=== PATIENT | male | born 1990 | race Caucasian/White ===

== ENCOUNTER → 2019-10-07 09:18 | Outpatient (BNVA) | payer MEDICAID, SELFPAY | PROVIDERS: Family Provider Family Medicine; PCP Family Medicine; Visit Provider Specialist | DX: G40.219 Localization-related (focal) (partial) symptomatic epilepsy and epileptic syndromes with complex partial seizures, intractable, without status epilepticus (principal); F17.210 Nicotine dependence, cigarettes, uncomplicated | CPT/HCPCS: 99214 ==

== ENCOUNTER → 2019-11-24 15:00 | Outpatient (BNVA) | payer MEDICAID, SELFPAY | PROVIDERS: Family Provider Family Medicine; PCP Family Medicine; Visit Provider Nurse Practitioner Family | DX: W46.0XXA Contact with hypodermic needle, initial encounter (principal) | CPT/HCPCS: 86706; 86803; 87340; 87806 ==

== ENCOUNTER → 2020-01-20 09:39 | Outpatient (BNVA) | payer MEDICAID, SELFPAY | PROVIDERS: Family Provider Family Medicine; PCP Family Medicine; Visit Provider Specialist | DX: G40.109 Localization-related (focal) (partial) symptomatic epilepsy and epileptic syndromes with simple partial seizures, not intractable, without status epilepticus (principal); F17.210 Nicotine dependence, cigarettes, uncomplicated | CPT/HCPCS: 99214 ==

== ENCOUNTER 2020-01-20 11:04 | Outpatient (CLI) | payer MEDICAID, SELFPAY ==
[2020-01-20 11:39] LABS: Alanine Aminotransferase 87 U/L (0-41); Valproic Acid Level 35.5 mcg/mL (50-100)
== END 2020-01-20 11:05 | disposition home or self-care (01) ==
LOC: LAB 11:07
PROVIDERS: Family Provider Family Medicine; PCP Family Medicine; Visit Provider Specialist
DX: G40.909 Epilepsy, unspecified, not intractable, without status epilepticus (principal)
CPT/HCPCS: 36415; 80164; 84460

== ENCOUNTER 2020-04-01 13:16 | Emergency (ER) | payer MEDICAID, SELFPAY ==
[2020-04-01 13:24] VITALS: PULSE 105; RESP 18; TEMP 36.6; O2SAT 93; BMI 26.4
[2020-04-01 14:16] LABS: Basophils # 0.1 10^3/uL (0.0-0.1); Basophils % 1.2 %; Eosinophils # 0.1 10^3/uL (0.0-0.8); Eosinophils % 1.2 %; Hematocrit 46.3 % (42.0-52.0); Hemoglobin 16.2 g/dL (11.7-16.6); Lymphocytes # 1.8 10^3/uL (0.8-4.8); Lymphocytes % 27.3 %; Mean Corpuscular Hemoglobin 33.6 pg (28.0-34.0); Mean Corpuscular Volume 96.1 fL (80-94); Mean Platelet Volume 8.9 fL (7.4-10.4); Monocytes # 0.4 10^3/uL (0.2-0.9); Monocytes % 5.3 %; Neutrophils # 4.29 10^3/uL (1.8-7.7); Neutrophils % 64.8 %; Nucleated Red Blood Cells % 0 %; Platelet Count 253 10^3/cmm (130-400); Red Blood Count 4.82 10^6/uL (4.1-5.3); Red Cell Distribution Width 11.6 % (12.1-15.1); White Blood Count 6.6 10^3/uL (4.0-10.0)
[2020-04-01 14:31] LABS: Alanine Aminotransferase 24 U/L (0-41); Albumin Level 4.6 g/dL (3.5-5.2); Alkaline Phosphatase 109 IU/L (40-130); Anion Gap 20.1 (5-19); Aspartate Amino Transferase 43 U/L (0-40); Blood Urea Nitrogen 5 mg/dL (6-20); Calcium 9.1 mg/dL (8.5-10.5); Carbon Dioxide 22 mmol/L (22-29); Chloride 100 mmol/L (98-107); Creatinine Clr Calc Pharmacy 189.2175; Globulin 2.8 g/dL (1.3-4.6); Glomerular Filtration Rate 132.4 mL/min (90-130); Glucose 211 mg/dL (65-115); Osmolality Calculated 290 mOsm/kg (285-295); Potassium 3.1 mmol/L (3.5-5.1); Sodium 139 mmol/L (136-145); Total Bilirubin 0.5 mg/dL (0.15-1.2); Total Protein 7.4 g/dL (6.6-8.7)
--- NOTE | 2020-04-01 15:26 | CTR_ITS ---
PROCEDURE INFORMATION: Exam: CT Head Without Contrast Exam date and time: 04/01/2020 4:14 PM Age: 29 years old Clinical indication: Condition or disease; Convulsions or seizures; Prior surgery; Additional info: Seizure TECHNIQUE: Imaging protocol: Computed tomography of the head without contrast. Radiation optimization: All CT scans at this facility use at least one of these dose optimization techniques: automated exposure control; mA and/or kV adjustment per patient size (includes targeted exams where dose is matched to clinical indication); or iterative reconstruction. COMPARISON: CT head wo con* [id number] 06/26/2018 12:59 PM RADIATION DOSE METRICS: Total DLP (mGy-cm): 918.1 FINDINGS: Brain: Normal. No hemorrhage. Unremarkable white matter. No mass effect. Unchanged encephalomalacia of the left temporal lobe may reflect sequela of old injury. Ventricles: Normal. No ventriculomegaly. Bones/joints: There is unchanged satisfactory appearance of the postoperative right craniotomy is again noted. No acute fracture. Sinuses: Visualized sinuses are unremarkable. No fluid levels. Mastoid air cells: Visualized mastoid air cells are well aerated. Soft tissues: Unremarkable. CT/CT head wo con* [id number] IMPRESSION: No acute intracranial abnormality. Chronic findings and postoperative changes are noted as above. Radiation Dose CTDIVOL = (mGy): DLP = 918.1 (mGy-cm)
--- NOTE | 2020-04-01 16:55 | W.ED.AMS ---
HPI - Altered Mental Status General: Chief Complaint: Altered Mental Status Stated Complaint: possible head inury Time Seen by Provider: 04/01/20 15:02 History of Present Illness: HPI narrative: Patient has a history of traumatic brain injury. He has complex complicated seizures secondary to this injury. She had a seizure several days ago and has had some memory difficulty since that time. MD complaint: altered mental status and confusion Onset (ago): day(s) Timing confirmed by: family member Severity: moderate Consistency of symptoms: Waxing and Waning Context: history of similar presentation Review of Systems General: Reports: 10 or more systems reviewed and unremarkable except in HPI and below PFSH ED PFSH: Medical History Brain injury Social History Smoking and tobacco status: current every day smoker cigarettes Packs smoked per day: 1 Alcohol intake: current Alcohol intake frequency: 0-2 Drinks per Day Alcohol type: beer Physical Exam Const: COMMON NORMALS: no acute distress, patient oriented x3, no limitations and alert HENMT: COMMON NORMALS: normocephalic, atraumatic, external ears normal and Normal external nose present HEAD & SCALP: normocephalic and atraumatic FACE & SINUS: normal facial exam NOSE: Normal external nose present EXTERNAL EAR: Yes external ears normal MOUTH: Normal oral and palatal mucosa present Neck/C-Spine: COMMON NORMALS: full ROM, no lymphadenopathy, supple, no meningeal signs and no JVD GENERAL: Yes normal visual inspection Resp: COMMON NORMALS: normal respiratory effort, No retractions, No use of accessory muscles and clear to auscultation bilaterally AUSCULTATION: clear to auscultation bilaterally Cardio: COMMON NORMALS: no JVD, regular rate and regular rhythm RATE: regular rate RHYTHM: regular rhythm GI: COMMON NORMALS: Normal to inspection, nondistended, normoactive bowel sounds present, Soft to palpation, non-tender, No hepatosplenomegaly present and no masses INSPECTION: Yes normal to inspection AUSCULTATION: Yes normoactive bowel sounds PALPATION: Yes Soft to palpation and Yes No hepatosplenomegaly present PERCUSSION: normal to percussion : COMMON NORMALS: Yes no CVA tenderness BLADDER/KIDNEY EXAM: Yes no CVA tenderness Back/Pelvis: COMMON NORMALS: no CVA tenderness, thoracic and lumbar spine normal to inspection, no thoracic nor lumbar tenderness, thoraco-lumbar ROM normal and straight leg raise negative bilaterally Extremity: COMMON NORMALS: normal to inspection, full ROM, capillary refill normal, no joint enlargement, no clubbing, cyanosis or edema, no calf tenderness and no pedal edema Neuro: COMMON NORMALS: patient oriented x3, moves all extremities, no focal motor deficits and no sensory deficits noted SENSORIUM/ORIENTATION: Yes alert MENINGEAL SIGNS: Yes no meningeal signs Psych: COMMON NORMALS: mental status grossly normal, Normal thought process present, cooperative, normal affect and speech normal SPEECH: Yes normal speech THOUGHT PROCESS: Normal thought process present Skin: COMMON NORMALS: no rashes or lesions noted, no wounds, turgor normal, no jaundice, no petechiae and no mottling GENERAL SKIN EXAM: no rashes or lesions noted and turgor normal Course Vital Signs: Vital signs: Vital Signs Temperature 97.8 F 04/01/20 13:24 Pulse Rate 105 H 04/01/20 13:24 Respiratory Rate 18 04/01/20 13:24 Pulse Oximetry 93 04/01/20 13:24 MDM - Altered Mental Status Lab Data: Labs: Lab Results 04/01/20 04/01/20 Range/Units 14:12 14:12 WBC 6.6 (4.0-10.0) 10^3/ uL RBC 4.82 (4.1-5.3) 10^6/u L Hgb 16.2 (11.7-16.6) g/dL Hct 46.3 (42.0-52.0) % MCV 96.1 H (80-94) fL MCH 33.6 (28.0-34.0) pg MCHC 35.0 (30.0-36.0) g/dL RDW 11.6 L (12.1-15.1) % Plt Count 253 (130-400) 10^3/c mm MPV 8.9 (7.4-10.4) fL Neut % (Auto) 64.8 % Lymph % (Auto) 27.3 % Petroleum % (Auto) 5.3 % Eos % (Auto) 1.2 % Baso % (Auto) 1.2 % Neut # (Auto) 4.29 (1.8-7.7) 10^3/u L Lymph # (Auto) 1.8 (0.8-4.8) 10^3/u L Petroleum # (Auto) 0.4 (0.2-0.9) 10^3/u L Eos # (Auto) 0.1 (0.0-0.8) 10^3/u L Baso # (Auto) 0.1 (0.0-0.1) 10^3/u L Nucleated RBC % (a uto) 0 % Nucleated RBCs # 0.0 /100WBC Sodium 139 (136-145) mmol/L Potassium 3.1 L (3.5-5.1) mmol/L Chloride 100 (98-107) mmol/L Carbon Dioxide 22 (22-29) mmol/L Anion Gap 20.1 H (5-19) BUN 5 L (6-20) mg/dL Creatinine 0.7 (0.7-1.2) mg/dL GFR Calculation 132.4 H (90-130) mL/min Glucose 211 H (65-115) mg/dL Calculated Osmolal ity 290 (285-295) mOsm/k g Calcium 9.1 (8.5-10.5) mg/dL Total Bilirubin 0.5 (0.15-1.2) mg/dL AST 43 H (0-40) U/L ALT 24 (0-41) U/L Alkaline Phosphata se 109 (40-130) IU/L Total Protein 7.4 (6.6-8.7) g/dL Albumin 4.6 (3.5-5.2) g/dL Globulin 2.8 (1.3-4.6) g/dL Discharge Plan Discharge Patient Disposition: Home, Self-Care Clinical Impression: History of traumatic brain injury, Seizure disorder AMS (altered mental status) Qualifiers: Altered mental status type: unspecified Qualified Code(s): R41.82 - Altered mental status, unspecified Condition: Stable Prescriptions: No Action multivitamin Capsule 1 cap PO DAILY RF: 0 omega 5-wix-kws-fish oil [Fish Oil] 1,000 mg (120 mg-180 mg) capsule 1 cap PO DAILY RF: 0 calcium carbonate [Calcium 600] 600 mg calcium (1,500 mg) tablet 600 mg PO DAILY RF: 0 magnesium 250 mg tablet 250 mg PO DAILY RF: 0 lorazepam [Lorazepam Intensol] 2 mg/mL concentrate 2 mg PO DAILY PRN (Reason: seizure activity) Qty: 30 RF: 4 divalproex [Depakote ER] 500 mg tablet extended release 24 hr 1,500 mg PO BID Qty: 180 RF: 4 ibuprofen 200 mg Tablet 400 mg PO PRN RF: 0 Onfi 20 mg Tablet 20 mg PO BID RF: 0 Discharge Orders: Discharge Order (Routine); Ordered 04/01/20 Ordered By: Kory Ambrocio Referrals: Dusty Holliday DO [Primary Care Provider] - Coding Level of Care Code ED Outdoor Adventure Instructor for Chg Fwd Exam Comprehensive
[2020-04-01] MEDS: divalproex ER 500 mg Tablet (24H) PO (17:34)
[2020-04-01 17:37] VITALS: BP 145/118; PULSE 92; RESP 18
[2020-04-01 18:05] LABS: Valproic Acid Level 32.2 ug/mL (50-100)
== END 2020-04-01 17:36 | disposition home or self-care (01) ==
PROVIDERS: Nurse Practitioner Family; Emergency Provider Family Medicine; PCP Family Medicine
DX: R41.82 Altered mental status, unspecified (principal); G40.909 Epilepsy, unspecified, not intractable, without status epilepticus; Z87.820 Personal history of traumatic brain injury; F17.210 Nicotine dependence, cigarettes, uncomplicated
CPT/HCPCS: 12345; 70450; 80053; 80164; 85025; 99281; 99283

== ENCOUNTER → 2020-04-08 09:43 | Outpatient (BNVA) | payer MEDICAID, SELFPAY | PROVIDERS: PCP Family Medicine; Referring Provider Specialist; Visit Provider Specialist | DX: G40.109 Localization-related (focal) (partial) symptomatic epilepsy and epileptic syndromes with simple partial seizures, not intractable, without status epilepticus (principal); R41.82 Altered mental status, unspecified | CPT/HCPCS: 95816 ==

== ENCOUNTER → 2020-05-25 15:00 | Outpatient (BNVA) | payer MEDICAID, SELFPAY | PROVIDERS: PCP Family Medicine; Visit Provider Specialist | DX: G40.109 Localization-related (focal) (partial) symptomatic epilepsy and epileptic syndromes with simple partial seizures, not intractable, without status epilepticus (principal); F17.210 Nicotine dependence, cigarettes, uncomplicated | CPT/HCPCS: 99213 ==

== ENCOUNTER 2020-05-28 16:30 | Outpatient (CLI) | payer MEDICAID, SELFPAY ==
[2020-05-28 17:38] LABS: Valproic Acid Level 86.4 ug/mL (50-100)
== END 2020-05-28 16:31 | disposition home or self-care (01) ==
LOC: LAB 16:32
PROVIDERS: PCP Family Medicine; Visit Provider Specialist
DX: G40.109 Localization-related (focal) (partial) symptomatic epilepsy and epileptic syndromes with simple partial seizures, not intractable, without status epilepticus (principal)
CPT/HCPCS: 80164

== ENCOUNTER → 2020-09-29 14:45 | Outpatient (BNVA) | payer MEDICAID, SELFPAY | PROVIDERS: PCP Family Medicine; Visit Provider Specialist | DX: G40.109 Localization-related (focal) (partial) symptomatic epilepsy and epileptic syndromes with simple partial seizures, not intractable, without status epilepticus (principal); F17.210 Nicotine dependence, cigarettes, uncomplicated | CPT/HCPCS: 99215 ==

== ENCOUNTER → 2021-02-09 14:48 | Outpatient (BNVA) | payer MEDICAID, SELFPAY | PROVIDERS: PCP Family Medicine; Visit Provider Specialist | DX: G40.109 Localization-related (focal) (partial) symptomatic epilepsy and epileptic syndromes with simple partial seizures, not intractable, without status epilepticus (principal); G40.319 Generalized idiopathic epilepsy and epileptic syndromes, intractable, without status epilepticus; F17.210 Nicotine dependence, cigarettes, uncomplicated | CPT/HCPCS: 99214 ==

== ENCOUNTER → 2021-05-12 16:14 | Outpatient (BNVA) | payer MEDICAID, SELFPAY | PROVIDERS: PCP Family Medicine; Visit Provider Nurse Practitioner Family | DX: Z20.822 Contact with and (suspected) exposure to COVID-19 (principal) | CPT/HCPCS: 87635 ==

== ENCOUNTER → 2021-08-10 10:48 | Outpatient (BNVA) | payer MEDICAID, SELFPAY | PROVIDERS: PCP Family Medicine; Visit Provider Specialist | DX: G40.109 Localization-related (focal) (partial) symptomatic epilepsy and epileptic syndromes with simple partial seizures, not intractable, without status epilepticus (principal) | CPT/HCPCS: 99215 ==

== ENCOUNTER 2021-09-23 08:18 | Outpatient (CLI) | payer MEDICAID, SELFPAY ==
--- NOTE | 2021-09-23 08:25 | MR_ITS ---
WS: [id number] MRI CERVICAL SPINE with and without contrast. HISTORY: G40.109 - Localization-related (focal) (partial) symptomatic seizures. COMPARISON: None available. Technique: Multiplanar, multisequence noncontrast imaging of the cervical spine. Sagittal and axial T 1 fat sat sequences post-MultiHance 20 cc IV. Straightening of the normal cervical lordosis. No fracture or marrow edema. There is a very slight increased T2 signal in the cervical cord at the C5-6 level. This does not enha nce. There is no or atrophy. Craniocervical junction, C1 and C2 relationship, odontoid process and soft tissues are normal. C2-C3: Normal. C3-C4: Normal. C4-C5: Normal. C5-C6: Mild osteophytic ridging and shallow disc protrusion. Mild effacement of ventral CSF with mild central and foraminal stenosis. C6-C7: Mild osteophytic ridging. No significant stenosis. C7-T1: Normal. Paravertebral soft tissues are normal. No vertebral body or disc enhancement. No enhancing lesions wi thin the cord. MR/MR cervical spine wo/w [id number] IMPRESSION: 1. Central disc osteophyte complex at C5-6. Mild encroachment upon the ventral thecal sac. Mild central and foraminal stenosis. 2. There is very subtle increased signal within the cervical cord at C5-6 with no enhancement. Favor this may be an focal area of myelomalacia related to the disc disease. Cannot completely exclude a demyelinating lesion but thought to be less likely.
--- NOTE | 2021-09-23 08:25 | MR_ITS ---
WS: [id number] MRI BRAIN WITH AND WITHOUT CONTRAST HISTORY: G40.109 - Localization-related (focal) (partial) symptomatic seizures. COMPARISON: 07/23/2018 and 04/01/2020. TECHNIQUE: Multiplanar imaging performed through the brain with MultiHance 20 ml's IV. No acute infarcts are seen. Salas-white matter differentiation is well preserved. There is persistent increased T2 signal in the LEFT temporal lobe with volume loss. This has been previously described an d the increased signal is within the white and salas matter. Probably related to prior trauma. Focal a zak of volume loss and increased T2 signal involving the inferior LEFT temporal lobe was present on t he prior study. There is mild enhancement within the inferior LEFT temporal lobe which may be venous angioma or small AVM. There is an additional vague increased T2 signal with low signal in the periphe ral measuring 8 mm in the anterior LEFT frontal temporal lobe. Very slight enhancement. No pericallosal signal abnormality abnormality to suggest demyelinating plaques. No white matter lesi ons are identified that have progressed or new. Ventricles and extra-axial spaces are normal. Clivus and pituitary gland are normal. Visualized posterior fossa and brainstem are also normal. Again noted is some mild blush-like area of enhancement inferior LEFT temporal lobe measuring 8 mm. T his area has not been previously evaluated with contrast. This is in the area of a prior insult as th ere is adjacent increased T2 signal. Favor this may be a small venous angioma or venous malformation. Dural venous sinuses are normal. Paranasal sinuses: Well aerated with no significant disease. Mastoid air cells: Normal. Calvarium and scalp: Prior RIGHT frontotemporal craniotomy. MR/MR head wo/w con [id number] IMPRESSION: 1. No acute infarct. 2. Chronic volume loss with increased T2 signal in the LEFT temporal and LEFT frontal lobe. No interval change since 2018. Favor these changes are probably d ue to small vascular malformations. Small venous angiomas and/or small venous m alformations with slight enhancement present. These are better visualized on to day's examination due to better imaging technique and contrast. No interval sandip nge. 3. No demyelinating lesions. 4. Prior RIGHT parietal craniotomy.
== END 2021-09-23 08:19 | disposition home or self-care (01) ==
LOC: RADSHAW 08:21
PROVIDERS: PCP Family Medicine; Visit Provider Specialist
DX: G40.109 Localization-related (focal) (partial) symptomatic epilepsy and epileptic syndromes with simple partial seizures, not intractable, without status epilepticus (principal)
CPT/HCPCS: 70553; 72156; A9577

== ENCOUNTER → 2021-11-22 13:58 | Outpatient (BNVA) | payer MEDICAID, SELFPAY | PROVIDERS: PCP Family Medicine; Visit Provider Specialist | DX: G62.89 Other specified polyneuropathies (principal); R53.1 Weakness | CPT/HCPCS: 95909 ==

== ENCOUNTER 2021-12-17 17:20 | Inpatient (IN) | payer MEDICAID, SELFPAY ==
[2021-12-17] VITALS (12 sets, daily range): BP systolic 118–148; BP diastolic 83–104; PULSE 96–115; RESP 16–20; TEMP 36.4; O2SAT 96–100; BMI 29.7
[2021-12-17 18:42] LABS: Basophils # 0.1 10^3/uL (0.0-0.1); Basophils % 0.5 %; Eosinophils # 0.2 10^3/uL (0.0-0.8); Eosinophils % 1.3 %; Hematocrit 43.6 % (42.0-52.0); Hemoglobin 15.3 g/dL (11.7-16.6); Lymphocytes # 3.2 10^3/uL (0.8-4.8); Lymphocytes % 26.9 %; Mean Corpuscular HGB Conc 35.1 g/dL (30.0-36.0); Mean Corpuscular Hemoglobin 34.5 pg (28.0-34.0); Mean Corpuscular Volume 98.2 fl (80-94); Mean Platelet Volume 8.9 fL (7.4-10.4); Monocytes # 0.7 10^3/uL (0.2-0.9); Monocytes % 6.2 %; Neutrophils # 7.61 10^3/uL (1.8-7.7); Neutrophils % 64.7 %; Nucleated Red Blood Cells % 0.2 %; Platelet Count 344 10^3/cmm (130-400); Red Blood Count 4.44 10^6/uL (4.1-5.3); Red Cell Distribution Width 12.7 % (12.1-15.1); White Blood Count 11.8 10^3/uL (4.0-10.0)
[2021-12-17] MEDS: sodium chloride 0.9% 1,000 ML 999 ML IV (18:44)
[2021-12-17 19:10] LABS: Valproic Acid Level 95.3 ug/mL (50-100)
--- NOTE | 2021-12-17 19:10 | CTR_ITS ---
PROCEDURE INFORMATION: Exam: CT Head Without Contrast Exam date and time: 12/17/2021 7:39 PM Age: 31 years old Clinical indication: Walking, difficulty; Prior surgery; Surgery date: 6+ months; Surgery type: Craniotomy - trauma; Patient HX: C/O worsening weakness and ability to walk x 4 days TECHNIQUE: Imaging protocol: Computed tomography of the head without contrast. Radiation optimization: All CT scans at this facility use at least one of these dose optimization techniques: automated exposure control; mA and/or kV adjustment per patient size (includes targeted exams where dose is matched to clinical indication); or iterative reconstruction. COMPARISON: MR head wo/w con [id number] 09/23/2021 9:55 AM RADIATION DOSE METRICS: Total DLP (mGy-cm): 966.7 FINDINGS: Brain: No hemorrhage. No edema. Similar encephalomalacia in the anterior left temporal lobe. Mild diffuse cerebral atrophy. No mass effect. Cerebral ventricles: No ventriculomegaly. Paranasal sinuses: Visualized sinuses are unremarkable. No fluid levels. Mastoid air cells: Visualized mastoid air cells are well aerated. Bones/joints: Right frontal parietal craniotomy changes. No acute fracture. Soft tissues: Unremarkable. CT/CT head wo con* [id number] IMPRESSION: 1. No acute intracranial abnormality. 2. Right frontal parietal craniotomy changes with encephalomalacia in the anterior left temporal lobe.
[2021-12-17 19:13] LABS: Alanine Aminotransferase 53 U/L (0-41); Albumin Level 3.7 g/dL (3.5-5.2); Alkaline Phosphatase 155 IU/L (40-130); Anion Gap 15.7 (5-19); Aspartate Amino Transferase 74 U/L (0-40); Blood Urea Nitrogen 3 mg/dL (6-20); C Reactive Protein 21.1 mg/L (0.0-4.9); Calcium 9.8 mg/dL (8.5-10.5); Carbon Dioxide 25 mmol/L (22-29); Chloride 97 mmol/L (98-107); Creatine Phosphokinase 35 U/L (39-308); Erythrocyte Sedimentation Rate 23 mm/hr (0-10); Globulin 3.6 g/dL (1.3-4.6); Glomerular Filtration Rate 192.7 mL/min (90-130); Glucose 100 mg/dL (65-115); Magnesium 1.3 mg/dL (1.7-2.3); Osmolality Calculated 275 mOsm/kg (285-295); Potassium 3.7 mmol/L (3.5-5.1); Sodium 134 mmol/L (136-145); Total Bilirubin 0.5 mg/dL (0.15-1.2); Total Protein 7.3 g/dL (6.6-8.7)
[2021-12-17 19:19] LABS: Procalcitonin 0.06 ng/mL (0-0.5)
[2021-12-17 20:34] LABS: Add Urine Microscopic? NO; Charge for UA Resulting for Rev
[2021-12-17 20:41] LABS: Bilirubin Urine Neg (Negative); Blood Urine Neg (Negative); Glucose Urine UA Norm (Normal); Ketones Urine Negative (Negative); Leukocyte Esterase Urine Negative (Negative); Nitrate Urine Negative (Negative); Protein Urine Neg (Negative); Specific Gravity, Urine 1.015 (1.005-1.030); Urine Appearance Clear (CLEAR); Urine Color Yellow (Yellow); Urobilinogen Urine Norm (Negative); pH Urine 6.5 (5-7)
[2021-12-17 20:49] LABS: Amphetamines Screen Urine Negative (Negative); Barbiturates Screen Urine Negative (Negative); Benzodiazepines Screen Urine Positive (Negative); Cocaine Screen Urine Negative (Negative); Opiate Screen Urine Negative (Negative); PCP Screen Urine Negative (Negative); THC Screen Urine Negative (Negative)
[2021-12-17] MEDS: ondansetron 2 mg/ML SDV 2 mL 4 MG IVP (21:32)
[2021-12-17] MEDS: morphine 4 mg/mL SDV 1 mL IVP (21:33)
[2021-12-17] MEDS: magnesium sulfate premix 2 GM/50 ML PIGGYBACK IV (21:33)
--- NOTE | 2021-12-17 21:48 | PC.NURSE ---
Pt given sandwhich bag per ERP ok
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
[2021-12-17] MEDS: nicotine 21 mg Patch 1 PATCH TRANSDERMA (23:53)
[2021-12-17] MEDS: pred sod phos 15 mg/5 mL Soln 30mL Btl 60 MG PO (23:54)
[2021-12-18] VITALS (11 sets, daily range): BP systolic 122–145; BP diastolic 76–95; PULSE 88–117; RESP 17–20; TEMP 36.2–36.9; O2SAT 91–96; BMI 27.6
[2021-12-18 00:12] LABS: Valproic Acid Level 82.1 ug/mL (50-100)
[2021-12-18 00:22] LABS: HIV 1 & 2 Antibody Non-Reactive (Non-Reactiv); HIV 1 & 2 Antigen Non-Reactive (Non-Reactiv)
[2021-12-18 00:30] LABS: Folate Level 12.1 ng/mL (4.5-32.2)
[2021-12-18 00:31] LABS: Vitamin B12 741 pg/mL (232-1245)
--- NOTE | 2021-12-18 02:06 | PC.NURSE ---
belongings consist of t-shirt, sweat pants, house shoe, phone and silk examiner
[2021-12-18] MEDS: enoxaparin 40 mg/0.4 mL Syringe SUBCUT (04:34)
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
[2021-12-18 06:37] LABS: Basophils % 0.4 %; Eosinophils % 0.1 %; Hematocrit 39.5 % (42.0-52.0); Hemoglobin 13.5 g/dL (11.7-16.6); Lymphocytes # 1.1 10^3/uL (0.8-4.8); Lymphocytes % 12.9 %; Mean Corpuscular HGB Conc 34.2 g/dL (30.0-36.0); Mean Corpuscular Hemoglobin 34.4 pg (28.0-34.0); Mean Corpuscular Volume 100.8 fl (80-94); Mean Platelet Volume 9.6 fL (7.4-10.4); Monocytes # 0.1 10^3/uL (0.2-0.9); Monocytes % 1.7 %; Neutrophils # 7.11 10^3/uL (1.8-7.7); Neutrophils % 84.2 %; Nucleated Red Blood Cells % 0 %; Platelet Count 328 10^3/cmm (130-400); Red Blood Count 3.92 10^6/uL (4.1-5.3); Red Cell Distribution Width 13.1 % (12.1-15.1); White Blood Count 8.4 10^3/uL (4.0-10.0)
[2021-12-18 07:10] LABS: Magnesium 1.7 mg/dL (1.7-2.3); Phosphorus 3.6 mg/dL (2.5-4.5)
[2021-12-18 07:11] LABS: Alanine Aminotransferase 46 U/L (0-41); Albumin Level 3.2 g/dL (3.5-5.2); Alkaline Phosphatase 128 IU/L (40-130); Anion Gap 15.3 (5-19); Aspartate Amino Transferase 59 U/L (0-40); Blood Urea Nitrogen 4 mg/dL (6-20); Calcium 9.1 mg/dL (8.5-10.5); Carbon Dioxide 26 mmol/L (22-29); Chloride 99 mmol/L (98-107); Globulin 3.5 g/dL (1.3-4.6); Glomerular Filtration Rate 192.7 mL/min (90-130); Glucose 152 mg/dL (65-115); Osmolality Calculated 282 mOsm/kg (285-295); Potassium 4.3 mmol/L (3.5-5.1); Sodium 136 mmol/L (136-145); Total Bilirubin 0.4 mg/dL (0.15-1.2); Total Protein 6.7 g/dL (6.6-8.7)
[2021-12-18] MEDS: multivitamin therapeutic Tablet 1 TAB PO (08:37)
[2021-12-18] MEDS: nicotine 21 mg Patch 1 PATCH TRANSDERMA (08:37)
[2021-12-18] MEDS: ropinirole 1 mg Tablet 0.5 MG PO ×2 (08:37→17:30)
[2021-12-18] MEDS: thiamine 100 mg Tablet PO (08:37)
[2021-12-18] MEDS: folic acid 1 mg Tablet PO (08:37)
[2021-12-18] MEDS: divalproex ER 500 mg Tablet (24H) 1500 MG PO ×2 (08:37→17:30)
[2021-12-18] MEDS: pred sod phos 15 mg/5 mL Soln 30mL Btl 60 MG PO (08:41)
[2021-12-18] MEDS: acetaminophen 325 mg Tablet 650 MG PO (12:08)
--- NOTE | 2021-12-18 12:59 | P.PN_ITS ---
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 We will request PT evaluation Vitals/I&O/Wt Last Vital Signs Temp 98.2 F 12/18/21 08:00 Pulse 101 H 12/18/21 08:00 Resp 18 12/18/21 08:00 BP 138/95 12/18/21 08:00 Pulse Ox 94 12/18/21 08:00 12/17/21 12/18/21 12/18/21 22:59 06:59 14:59 Intake Total 1050 / 1050 500 / 1550 480 / 480 Balance 1050 / 1050 500 / 1550 480 / 480 Weight last 48 hrs Weight 94.943 kg Weight 102.058 kg Physical Exam Narrative: Patient was awake and alert Nonfocal neuro exam Generalized weakness of strength in all extremities Muscle weakness Saturating well on room air Euvolemic Abdomen soft S1, S2 Clinically looks euvolemic Data : 12/18/21 06:00 12/18/21 06:00 A&P Assessment and plan (1) Hypomagnesemia: Status: Acute (2) Muscle weakness of all 4 extremities: Status: Acute (3) Smoking addiction: Status: Acute (4) Excessive consumption of ethanol: Status: Acute (5) CIDP (chronic inflammatory demyelinating polyneuropathy): Status: Acute (6) Peripheral neuropathy: Status: Acute (7) Temporal lobe epilepsy: Status: Acute (8) Secondarily generalized seizures: Status: Acute Plan Weakness secondary to CIDP Underlying peripheral neuropathy likely further exacerbation due to active alcohol use Continue IVIG for 5 days Continue steroids Work with PT on daily basis Patient is not confused no active signs of focal deficit We will touch base with Dr. Posadas tomorrow No active signs of seizure, Electrolyte deficiency: Replenished No active alcohol withdrawal symptoms Attestations Medical Necessity Statement*: Continue medical management Time Spent in Patient Care: 30mins Coding Level of Care Code Acute Office Assistant Receptionist for Chg Fwd Diagnoses Hypomagnesemia E83.42 Muscle weakness of all 4 extremities M62.81 Smoking addiction F17.200 Excessive consumption of ethanol F10.10 CIDP (chronic inflammatory demyelinating polyneuropathy) G61.81 Peripheral neuropathy G62.9 Temporal lobe epilepsy G40.109 Secondarily generalized seizures
[2021-12-18] MEDS: gabapentin 300 mg Capsule PO ×2 (17:30→20:02)
[2021-12-18] MEDS: magnesium oxide 400 mg tablet PO (17:30)
--- NOTE | 2021-12-18 19:10 | PC.NURSE ---
i reported high pulse 113 to nurse
--- NOTE | 2021-12-18 23:17 | PC.NURSE ---
i reported high pulse 108 to nurse
[2021-12-19] MEDS: acetaminophen 325 mg Tablet 650 MG PO (02:48)
[2021-12-19 04:00] VITALS: BP 136/92; PULSE 106; RESP 18; TEMP 36.6; O2SAT 93
[2021-12-19 04:10] LABS: Basophils % 0.2 %; Eosinophils % 0.3 %; Hematocrit 39.2 % (42.0-52.0); Hemoglobin 13.4 g/dL (11.7-16.6); Lymphocytes # 2.5 10^3/uL (0.8-4.8); Lymphocytes % 19.9 %; Mean Corpuscular HGB Conc 34.2 g/dL (30.0-36.0); Mean Corpuscular Hemoglobin 34.9 pg (28.0-34.0); Mean Corpuscular Volume 102.1 fl (80-94); Mean Platelet Volume 9.7 fL (7.4-10.4); Monocytes # 0.7 10^3/uL (0.2-0.9); Monocytes % 5.7 %; Neutrophils # 9.13 10^3/uL (1.8-7.7); Nucleated Red Blood Cells % 0 %; Platelet Count 324 10^3/cmm (130-400); Red Blood Count 3.84 10^6/uL (4.1-5.3); Red Cell Distribution Width 13.2 % (12.1-15.1); White Blood Count 12.5 10^3/uL (4.0-10.0)
[2021-12-19] MEDS: ibuprofen 200 mg Tablet 400 MG PO (04:15)
[2021-12-19] MEDS: enoxaparin 40 mg/0.4 mL Syringe SUBCUT (04:15)
[2021-12-19 04:26] LABS: Alanine Aminotransferase 40 U/L (0-41); Albumin Level 3.3 g/dL (3.5-5.2); Alkaline Phosphatase 132 IU/L (40-130); Aspartate Amino Transferase 46 U/L (0-40); Blood Urea Nitrogen 8 mg/dL (6-20); Calcium 9.5 mg/dL (8.5-10.5); Carbon Dioxide 27 mmol/L (22-29); Chloride 102 mmol/L (98-107); Globulin 4.3 g/dL (1.3-4.6); Glomerular Filtration Rate 192.7 mL/min (90-130); Glucose 86 mg/dL (65-115); Magnesium 1.9 mg/dL (1.7-2.3); Osmolality Calculated 286 mOsm/kg (285-295); Phosphorus 3.3 mg/dL (2.5-4.5); Sodium 139 mmol/L (136-145); Total Bilirubin 0.3 mg/dL (0.15-1.2); Total Protein 7.6 g/dL (6.6-8.7)
[2021-12-19 04:27] LABS: Anion Gap 14.1 (5-19); Potassium 4.1 mmol/L (3.5-5.1)
--- NOTE | 2021-12-19 04:55 | PC.NURSE ---
i reported high pulse 106 to nurse
[2021-12-19 07:29] VITALS: BP 134/81; PULSE 101; RESP 13; O2SAT 92
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
[2021-12-19 08:37] LABS: D Dimer 0.25 ug/mIFEU (0-0.59)
--- NOTE | 2021-12-19 08:51 | PM.PN ---
Subjective Subjective: Dr. Posadas saw him this morning recommended IVIG 0.5 g/kg dose lifelong therapy and at halfway he will get once a week, Dr. Posadas's office will arrange that, she recommended cancel halfway His fianc?e is at the bedside Verna Ramírez phone number [phone] Patient is noted nursing overnight events He is much more awake and alert today as compared to yesterday Prednisone discontinued Vitals/I&O/Wt Last Vital Signs Temp 97.8 F 12/19/21 04:00 Pulse 101 H 12/19/21 07:29 Resp 13 12/19/21 07:29 BP 134/81 12/19/21 07:29 Pulse Ox 92 12/19/21 07:29 12/18/21 12/19/21 12/19/21 22:59 06:59 14:59 Intake Total 480 / 960 Output Total 1070 / 1820 Balance -590 / -860 Weight last 48 hrs Weight 94.943 kg Weight 102.058 kg Physical Exam Narrative: Patient is awake and alert Nonfocal neuro exam Weakness of legs noted Awake and alert GCS 15 Fianc? at the bedside Abdomen soft S1, S2 Satting well on room air Looks euvolemic Data : 12/19/21 02:50 12/19/21 02:50 A&P Assessment and plan (1) CIDP (chronic inflammatory demyelinating polyneuropathy): Status: Acute (2) Hypomagnesemia: Status: Acute (3) Smoking addiction: Status: Acute (4) Excessive consumption of ethanol: Status: Acute (5) Leg weakness, bilateral: Status: Acute (6) Secondarily generalized seizures: Status: Acute (7) Temporal lobe epilepsy: Status: Acute Plan CIDP: Continue IVIG, Dr. Posadas recommended placement to rehab at [facility] and continue IVIG 0.5 g/kg/week, indefinite treatment, Dr. Posadas's clinic will follow up with him We will update manager of case today Hypomagnesemia: Repleted Potassium 4.1 I have started him on high-dose thiamine for his excessive alcohol intake, I will do it for at least 5 days Advance his diet today Continue folic acid Prednisone discontinue Continue Depakote for history of epilepsy Full code DVT prophylaxis on board Attestations Medical Necessity Statement*: Continue medical management, will plan for disposition Time Spent in Patient Care: 20mins Coding Level of Care Code Acute Quarry Supervisor for Chg Fwd Diagnoses CIDP (chronic inflammatory demyelinating polyneuropathy) G61.81 Hypomagnesemia E83.42 Smoking addiction F17.200 Excessive consumption of ethanol F10.10 Leg weakness, bilateral R29.898 Secondarily generalized seizures Temporal lobe epilepsy G40.109
--- NOTE | 2021-12-19 09:58 | PC.CHAP ---
Pastoral Care Encounter/Spiritual Assessment Type of Contact [] Declined supervisor landscape visit [] Patient/Family/Request visit [] Outpatient visit [] Follow-up visit [] Physician referral [] Code/Alert [x] Routine visit [] Staff referral [] Actively dying [] Patient sleeping [] Family support [] [] Out of room [] Palliative care [] [] Receiving care in room [] Pre-surgical visit [] Trauma [] Long length of stay [] ICU visit [] Other: Relational/Emotional Strength [x] Patient feels connected with others/family/visitors/staff [] Distress [] Loneliness/isolation [] Abandonment Spirituality of Patient [x] Person of Keren [] Attends Amish of their Keren xx] Believes in Prayer [] Reads Bible or Baptism materials [] There are Spiritual issues to be addressed [employer] Interventions []x Prayer x[] Active listening [] Non-anxious presence [] Spiritual/emotional support [] Crisis/trauma care [] Spiritual counseling [] Bereavement support [] Provided bereavement packet [] Provided Bible/devotional materials [] Provided toy/stuffed animal, coloring book to patient or family member [] Provided Communion [] Anointing/[place] [] Salvation [x] Completed spiritual assessment [] Other: Impact on Illness or Injury [] Angry [] Fearful [] Anxious [] Often cries [] Exhaustion [] Unable to work [] Unable to attend faith [] Unable to walk/stand [] Unable to read [] Unable to drive [] Unable to eat/drink [] Unable to sleep [] Unable to be with family [] Patient intubated [] Other: Summary Time spent with patient 10 min
[2021-12-19] MEDS: thiamine 100 mg Tablet PO (10:00)
[2021-12-19] MEDS: divalproex ER 500 mg Tablet (24H) 1500 MG PO ×2 (10:00→17:44)
[2021-12-19] MEDS: gabapentin 300 mg Capsule PO ×3 (10:01→20:07)
[2021-12-19] MEDS: folic acid 1 mg Tablet PO (10:01)
[2021-12-19] MEDS: magnesium oxide 400 mg tablet PO ×2 (10:01→17:44)
[2021-12-19] MEDS: multivitamin therapeutic Tablet 1 TAB PO (10:01)
[2021-12-19] MEDS: ropinirole 1 mg Tablet 0.5 MG PO ×2 (10:02→17:46)
[2021-12-19] MEDS: thiamine 500 MG in sodium chloride 0.9% (100 ml) 100 ML 210 MG IV (10:22)
[2021-12-19] MEDS: nicotine 21 mg Patch 1 PATCH TRANSDERMA (10:23)
[2021-12-19 12:00] VITALS: BP 120/73; PULSE 106; RESP 13; O2SAT 94
[2021-12-19 16:00] VITALS: BP 139/95; PULSE 109; RESP 13; TEMP 37.1; O2SAT 14
[2021-12-19 19:56] VITALS: BP 128/78; PULSE 108; RESP 16; TEMP 36.8; O2SAT 96
[2021-12-19 23:52] VITALS: BP 121/79; PULSE 110; RESP 18; TEMP 37; O2SAT 95
[2021-12-20] VITALS (10 sets, daily range): BP systolic 122–144; BP diastolic 76–88; PULSE 93–106; RESP 12–18; TEMP 36.4–36.9; O2SAT 92–95
[2021-12-20] MEDS: enoxaparin 40 mg/0.4 mL Syringe SUBCUT (03:27)
[2021-12-20] MEDS: ibuprofen 200 mg Tablet 400 MG PO ×3 (03:38→18:19)
[2021-12-20 04:46] LABS: Basophils % 0.2 %; Eosinophils # 0.1 10^3/uL (0.0-0.8); Eosinophils % 0.6 %; Hematocrit 43.5 % (42.0-52.0); Hemoglobin 14.1 g/dL (11.7-16.6); Lymphocytes # 1.3 10^3/uL (0.8-4.8); Lymphocytes % 16.4 %; Mean Corpuscular HGB Conc 32.4 g/dL (30.0-36.0); Mean Corpuscular Hemoglobin 35.7 pg (28.0-34.0); Mean Corpuscular Volume 110.1 fl (80-94); Monocytes # 0.4 10^3/uL (0.2-0.9); Neutrophils # 6.26 10^3/uL (1.8-7.7); Neutrophils % 77.1 %; Nucleated Red Blood Cells % 0.2 %; Platelet Count 252 10^3/cmm (130-400); Red Blood Count 3.95 10^6/uL (4.1-5.3); Red Cell Distribution Width 13.7 % (12.1-15.1); White Blood Count 8.1 10^3/uL (4.0-10.0)
[2021-12-20 05:41] LABS: Alanine Aminotransferase 32 U/L (0-41); Albumin Level 2.8 g/dL (3.5-5.2); Alkaline Phosphatase 111 IU/L (40-130); Aspartate Amino Transferase 37 U/L (0-40); Blood Urea Nitrogen 7 mg/dL (6-20); Carbon Dioxide 24 mmol/L (22-29); Chloride 101 mmol/L (98-107); Globulin 4.6 g/dL (1.3-4.6); Glomerular Filtration Rate 249.3 mL/min (90-130); Glucose 93 mg/dL (65-115); Osmolality Calculated 276 mOsm/kg (285-295); Sodium 134 mmol/L (136-145); Total Bilirubin 0.4 mg/dL (0.15-1.2); Total Protein 7.4 g/dL (6.6-8.7)
[2021-12-20 05:43] LABS: Anion Gap 13.2 (5-19); Potassium 4.2 mmol/L (3.5-5.1)
[2021-12-20 05:53] LABS: Slide Review Slide Review Perform
--- NOTE | 2021-12-20 07:32 | PC.NURSE ---
During shift change report. TANISHA Mendieta and TANISHA Saldana asked the patient if he would like to get up and sit in his chair. Patient refused to get up in his chair for breakfast. Patient wanted to sit on the edge of his bed to eat.
--- NOTE | 2021-12-20 07:48 | PC.NURSE ---
Securely messaged Dr. Ryder regarding two orders of magnesium. 250mg and 400mg. Patient's most recent labs show a mag level of 1.9. Dr. Ryder requested the patient only receive the 400mg dose.
--- NOTE | 2021-12-20 08:15 | PC.NURSE ---
Securely messaged Dr. Ryder regarding double thiamine order. Dr. Ryder clarified to only give the patient the 500mg/100ml IV thiamine.
[2021-12-20] MEDS: nicotine 21 mg Patch 1 PATCH TRANSDERMA (09:08)
[2021-12-20] MEDS: thiamine 500 MG in sodium chloride 0.9% (100 ml) 100 ML 210 MG IV (09:09)
[2021-12-20] MEDS: divalproex ER 500 mg Tablet (24H) 1500 MG PO ×2 (09:10→18:19)
[2021-12-20] MEDS: magnesium oxide 400 mg tablet PO ×2 (09:10→18:19)
[2021-12-20] MEDS: gabapentin 300 mg Capsule PO ×3 (09:11→20:46)
[2021-12-20] MEDS: multivitamin therapeutic Tablet 1 TAB PO (09:11)
[2021-12-20] MEDS: folic acid 1 mg Tablet PO (09:11)
[2021-12-20] MEDS: ropinirole 1 mg Tablet 0.5 MG PO ×2 (09:12→18:20)
--- NOTE | 2021-12-20 12:03 | PM.PN ---
Subjective Subjective: Patient to finish 5 days of IVIG which will be No active complaints He has been using walker He wants to go home once IVIG course is finished He will follow up with Dr. Posadas's clinic, I have updated Dr. Posadas yesterday about this plan Vitals/I&O/Wt Last Vital Signs Temp 97.6 F 12/20/21 11:19 Pulse 95 12/20/21 11:19 Resp 16 12/20/21 11:19 BP 129/81 12/20/21 11:19 Pulse Ox 95 12/20/21 11:19 12/19/21 12/20/21 12/20/21 22:59 06:59 14:59 Intake Total 240 / 945 120 / 1065 225 / 225 Output Total 700 / 700 Balance 240 / 945 120 / 1065 -475 / -475 Physical Exam Narrative: Patient was eating breakfast Nonfocal neuro exam Weakness of extremities noted which has not worsened since admission No facial droop Pleasant and cooperative Saturating well on room air Abdomen soft S1, S2 Data : 12/20/21 04:05 12/20/21 05:19 A&P Assessment and plan (1) CIDP (chronic inflammatory demyelinating polyneuropathy): Status: Acute (2) Hypomagnesemia: Status: Acute (3) Muscle weakness of all 4 extremities: Status: Acute (4) Smoking addiction: Status: Acute (5) Excessive consumption of ethanol: Status: Acute (6) Leg weakness, bilateral: Status: Acute (7) Secondarily generalized seizures: Status: Acute (8) Temporal lobe epilepsy: Status: Acute Plan Continue 5 days of IVIG for CIDP No need to repeat labs for next 2 days He will discharge on , he wants to go home, he does have a walker Dr. Posadas has been notified Steroids discontinued Continue high-dose thiamine because of excessive alcohol intake, Regular diet DVT prophylaxis Lovenox Attestations Medical Necessity Statement*: Patient will stay until Time Spent in Patient Care: 20mins Coding Level of Care Code Acute Renewal Specialist for [facility] Fwd Diagnoses CIDP (chronic inflammatory demyelinating polyneuropathy) G61.81 Hypomagnesemia E83.42 Muscle weakness of all 4 extremities M62.81 Smoking addiction F17.200 Excessive consumption of ethanol F10.10 Leg weakness, bilateral R29.898 Secondarily generalized seizures Temporal lobe epilepsy G40.109
--- NOTE | 2021-12-20 14:14 | PC.OT ---
OT TREATMENT ATTEMPTED 3X TODAY; TWICE IN A.M. AND ONCE IN P.M. PATIENT IS SLEEPING SOUNDLY AND DOES NOT AWAKEN. WILL ATTEMPT AGAIN AT A LATER TIME.
--- NOTE | 2021-12-20 17:20 | PC.NURSE ---
Messaged Dr. Ryder regarding patient not receiving IVIG this morning. Calling pharmacy to verify order by Dr. Ryder that patient is to receive IVIG for 5 consecutive days. No answer. Will call pharmacy again.
[2021-12-21] VITALS (7 sets, daily range): BP systolic 117–147; BP diastolic 71–92; PULSE 88–104; RESP 16–18; TEMP 36.6–36.7; O2SAT 90–95
[2021-12-21] MEDS: enoxaparin 40 mg/0.4 mL Syringe SUBCUT (03:26)
[2021-12-21] MEDS: divalproex ER 500 mg Tablet (24H) 1500 MG PO ×2 (08:48→18:28)
[2021-12-21] MEDS: nicotine 21 mg Patch 1 PATCH TRANSDERMA (08:48)
[2021-12-21] MEDS: multivitamin therapeutic Tablet 1 TAB PO (08:51)
[2021-12-21] MEDS: ropinirole 1 mg Tablet 0.5 MG PO ×2 (08:51→18:30)
[2021-12-21] MEDS: folic acid 1 mg Tablet PO (08:53)
[2021-12-21] MEDS: gabapentin 300 mg Capsule PO ×3 (08:55→20:03)
--- NOTE | 2021-12-21 09:36 | P.PN_ITS ---
Subjective Subjective: Patient is doing fine, no worsening of underlying weakness IVIG to be completed on No new events endorsed by the patient He was eating breakfast Satting well on room air He decided to quit alcohol Vitals/I&O/Wt Last Vital Signs Temp 97.8 F 12/21/21 07:59 Pulse 98 12/21/21 07:59 Resp 18 12/21/21 07:59 BP 125/83 12/21/21 07:59 Pulse Ox 93 12/21/21 07:59 12/20/21 12/21/21 12/21/21 22:59 06:59 14:59 Intake Total 100 / 100 Output Total 1900 / 3125 Balance -1900 / -2420 100 / 100 Physical Exam Narrative: Patient sitting comfortably in his recliner eating breakfast No worsening of underlying weakness Edema, follow S1, S2 Saturating well on room air Abdomen soft Looks euvolemic Awake and alert Has been using walker to ambulate in the room proximal muscle weakness is prominent Data : 12/20/21 04:05 12/20/21 05:19 A&P Assessment and plan (1) Hypomagnesemia: Status: Acute (2) CIDP (chronic inflammatory demyelinating polyneuropathy): Status: Acute (3) Muscle weakness of all 4 extremities: Status: Acute (4) Smoking addiction: Status: Acute (5) Excessive consumption of ethanol: Status: Acute Plan Patient will finish 5 doses of IVIG, last day will be 12/22 He will be discharged home He does have a walker at home, Might need a wheelchair Patient decided to quit alcohol Continue thiamine high-dose for 5 days as well Continue folic acid DVT prophylaxis on board Regular diet Continue antiepileptics as well Attestations Medical Necessity Statement*: Discharge tomorrow with outpatient follow-up with Dr. Posadas Time Spent in Patient Care: 20mins Coding Level of Care Code Acute Animal Husbandry Worker for [employer] Fwd Diagnoses Hypomagnesemia E83.42 CIDP (chronic inflammatory demyelinating polyneuropathy) G61.81 Muscle weakness of all 4 extremities M62.81 Smoking addiction F17.200 Excessive consumption of ethanol F10.10
--- NOTE | 2021-12-21 10:10 | PC.NURSE ---
Securely messaged Dr. Ryder regarding double magnesium order. Physician ordered to administer the 250mg dose and discontinue the 400mg dose.
[2021-12-21] MEDS: thiamine 100 mg Tablet PO (10:33)
[2021-12-21] MEDS: ibuprofen 200 mg Tablet 400 MG PO ×2 (10:38→15:57)
--- NOTE | 2021-12-21 11:02 | PC.NURSE ---
Securely messaged Dr. Ryder using Vo[employer]. Physician verbalized an order of 200mg mag.
[2021-12-21] MEDS: magnesium oxide 400 mg tablet 200 MG PO (11:59)
[2021-12-22] VITALS: BP 132/87; PULSE 93; RESP 16; TEMP 36.7; O2SAT 91
[2021-12-22 00:55] VITALS: PULSE 99
[2021-12-22] MEDS: enoxaparin 40 mg/0.4 mL Syringe SUBCUT (03:20)
[2021-12-22 04:00] VITALS: BP 119/77; PULSE 93; RESP 14; TEMP 36.5; O2SAT 92
[2021-12-22] MEDS: multivitamin therapeutic Tablet 1 TAB PO (07:51)
[2021-12-22] MEDS: ropinirole 1 mg Tablet 0.5 MG PO (07:51)
[2021-12-22] MEDS: folic acid 1 mg Tablet PO (07:52)
[2021-12-22] MEDS: gabapentin 300 mg Capsule PO (07:52)
[2021-12-22] MEDS: magnesium oxide 400 mg tablet 200 MG PO (07:52)
[2021-12-22] MEDS: thiamine 100 mg Tablet PO (07:52)
[2021-12-22] MEDS: nicotine 21 mg Patch 1 PATCH TRANSDERMA (07:52)
[2021-12-22 08:00] VITALS: BP 123/84; PULSE 99; RESP 18; TEMP 36.4; O2SAT 96
[2021-12-22] MEDS: divalproex ER 500 mg Tablet (24H) 1500 MG PO (08:55)
--- NOTE | 2021-12-22 10:28 | PM.DCS ---
Discharge Providers Date of Admission: 12/17/21 23:46 Date of Discharge: December 22, 2021 Attending Provider at Admission: Nando Ricci Attending Provider at Discharge: Tee Ryder MD Primary Care Provider: Lavonne Posadas MD Diagnoses at Discharge Discharge Diagnosis (1) Hypomagnesemia: Status: Acute (2) CIDP (chronic inflammatory demyelinating polyneuropathy): Status: Acute (3) Muscle weakness of all 4 extremities: Status: Acute (4) Smoking addiction: Status: Acute (5) Excessive consumption of ethanol: Status: Acute Reason for Visit Reason for Visit: unable to walk/weakness/skin discoloration Hospital Course Hospital Course 31-year-old male who has been diagnosed with CIDP by Dr. Posadas. He was given IVIG for 5 days. Because of his insurance we were not able to set up PT at home however his significant other is stating that she can set that up with his primary care physician, patient already has a wheelchair and a walker at home. Dr. Posadas's clinic will arrange weekly IVIG for for him, duration of therapy will be decided by Dr. Posadas. Patient's steroids were discontinued at the time of admission. He was given IV 500 mg of thiamine for Wernicke's encephalopathy (however he did not show typical symptoms.) He has proximal muscle weakness which makes it very difficult for him to get up from sitting position. Patient does not want to go to any SNF for now. Physical Exam Narrative: Patient sitting comfortably in his bed S1, S2 Saturating well on room air Abdomen soft Looks euvolemic Awake and alert Has been using walker to ambulate in the room Discharge Data Studies Completed and Pending Completed Studies During Hospitalization Category Date Time Status CT head wo con* 11115 Stat Cat Scan 12/17/21 19:10 Completed Radiology Impressions Head CT 12/17/21 19:10 IMPRESSION: 1. No acute intracranial abnormality. 2. Right frontal parietal craniotomy changes with encephalomalacia in the anterior left temporal lobe. Laboratory Results WBC 8.1 10^3/uL (4.0-10.0) 12/20/21 04:05 RBC 3.95 10^6/uL (4.1-5.3) L 12/20/21 04:05 Hgb 14.1 g/dL (11.7-16.6) 12/20/21 04:05 Hct 43.5 % (42.0-52.0) 12/20/21 04:05 MCV 110.1 fl (80-94) H D 12/20/21 04:05 MCH 35.7 pg (28.0-34.0) H 12/20/21 04:05 MCHC 32.4 g/dL (30.0-36.0) D 12/20/21 04:05 RDW 13.7 % (12.1-15.1) 12/20/21 04:05 Plt Count 252 10^3/cmm (130-400) 12/20/21 04:05 MPV 10.0 fL (7.4-10.4) 12/20/21 04:05 Neut % (Auto) 77.1 % 12/20/21 04:05 Lymph % (Auto) 16.4 % 12/20/21 04:05 [place] % (Auto) 5.0 % 12/20/21 04:05 Eos % (Auto) 0.6 % 12/20/21 04:05 Baso % (Auto) 0.2 % 12/20/21 04:05 Neut # (Auto) 6.26 10^3/uL (1.8-7.7) 12/20/21 04:05 Lymph # (Auto) 1.3 10^3/uL (0.8-4.8) 12/20/21 04:05 [place] # (Auto) 0.4 10^3/uL (0.2-0.9) 12/20/21 04:05 Eos # (Auto) 0.1 10^3/uL (0.0-0.8) 12/20/21 04:05 Baso # (Auto) 0.0 10^3/uL (0.0-0.1) 12/20/21 04:05 Nucleated RBC % (auto) 0.2 % 12/20/21 04:05 Nucleated RBCs # 0.0 /100WBC 12/20/21 04:05 ESR 23 mm/hr (0-10) H 12/17/21 18:36 D-Dimer 0.25 ug/mIFEU (0-0.59) 12/19/21 07:29 Sodium 134 mmol/L (136-145) L 12/20/21 05:19 Potassium 4.2 mmol/L (3.5-5.1) 12/20/21 05:19 Chloride 101 mmol/L (98-107) 12/20/21 05:19 Carbon Dioxide 24 mmol/L (22-29) 12/20/21 05:19 Anion Gap 13.2 (5-19) 12/20/21 05:19 BUN 7 mg/dL (6-20) 12/20/21 05:19 Creatinine 0.4 mg/dL (0.7-1.2) L 12/20/21 05:19 GFR Calculation 249.3 mL/min (90-130) H 12/20/21 05:19 Glucose 93 mg/dL (65-115) 12/20/21 05:19 Calculated Osmolality 276 mOsm/kg (285-295) L 12/20/21 05:19 Calcium 9.0 mg/dL (8.5-10.5) 12/20/21 05:19 Phosphorus 3.3 mg/dL (2.5-4.5) 12/19/21 02:50 Magnesium 1.9 mg/dL (1.7-2.3) 12/19/21 02:50 Total Bilirubin 0.4 mg/dL (0.15-1.2) 12/20/21 05:19 AST 37 U/L (0-40) 12/20/21 05:19 ALT 32 U/L (0-41) 12/20/21 05:19 Alkaline Phosphatase 111 IU/L (40-130) 12/20/21 05:19 Creatine Kinase 35 U/L (39-308) L 12/17/21 18:36 C-Reactive Protein 21.1 mg/L (0.0-4.9) H 12/17/21 18:36 Total Protein 7.4 g/dL (6.6-8.7) 12/20/21 05:19 Albumin 2.8 g/dL (3.5-5.2) L 12/20/21 05:19 Globulin 4.6 g/dL (1.3-4.6) 12/20/21 05:19 Vitamin B12 741 pg/mL (232-1245) 12/17/21 23:38 Folate 12.1 ng/mL (4.5-32.2) 12/17/21 23:38 Procalcitonin 0.06 ng/mL (0-0.5) 12/17/21 18:36 TSH 1.20 uIU/mL (0.27-4.20) 12/17/21 18:36 Urine Color Yellow (Yellow) 12/17/21 20:07 Urine Appearance Clear (CLEAR) 12/17/21 20:07 Urine pH 6.5 (5-7) 12/17/21 20:07 Ur Specific [place] 1.015 (1.005-1.030) 12/17/21 20:07 Urine Protein Neg (Negative) 12/17/21 20:07 Urine Glucose (UA) Norm (Normal) 12/17/21 20:07 Urine Ketones Negative (Negative) 12/17/21 20:07 Urine Blood Neg (Negative) 12/17/21 20:07 Urine Nitrate Negative (Negative) 12/17/21 20:07 Urine Bilirubin Neg (Negative) 12/17/21 20:07 Urine Urobilinogen Norm mg/dL (Negative) 12/17/21 20:07 Ur Leukocyte Esterase Negative (Negative) 12/17/21 20:07 Urine Opiates Screen Negative ng/mL (Negative) 12/17/21 20:07 Ur Barbiturates Screen Negative ng/mL (Negative) 12/17/21 20:07 Valproic Acid 82.1 ug/mL (50-100) 12/17/21 23:38 Ur Phencyclidine Scrn Negative ng/mL (Negative) 12/17/21 20:07 Ur Amphetamines Screen Negative ng/mL (Negative) 12/17/21 20:07 U Benzodiazepines Scrn Positive ng/mL (Negative) H 12/17/21 20:07 Urine Cocaine Screen Negative ng/mL (Negative) 12/17/21 20:07 U Marijuana (THC) Screen Negative ng/mL (Negative) 12/17/21 20:07 HIV 1&2 Ab & HIV 1 Ag Non-reactive (Non-Reactiv) 12/17/21 23:38 HIV 1&2 Antibody Non-reactive (Non-Reactiv) 12/17/21 23:38 Vitals Last Vital Signs Temp 97.6 F 12/22/21 08:00 Pulse 99 12/22/21 08:00 Resp 18 12/22/21 08:00 BP 123/84 12/22/21 08:00 Pulse Ox 96 12/22/21 08:00 Discharge Plan Discharge Patient Disposition: Home Condition: Stable Prescriptions: New folic acid 1 mg Tablet 1 mg PO DAILY Qty: 90 0RF Vitamin B-1 (mononitrate) 100 mg Tablet 100 mg PO DAILY Qty: 90 0RF Magnesium Oxide [Magox] 200 mg PO DAILY Qty: 10 1RF metoprolol tartrate 25 mg tablet 12.5 mg PO BID Qty: 60 3RF Continued divalproex 500 mg tablet extended release 24 hr 1,500 mg PO BID 30 Days Qty: 180 5RF Onfi 20 mg tablet 20 mg PO BID Qty: 60 5RF lorazepam [Lorazepam Intensol] 2 mg/mL concentrate 2 mg PO DAILY PRN (Reason: seizure activity) Qty: 30 5RF ropinirole 0.5 mg tablet 0.5 mg PO BID Qty: 60 5RF Rx Instructions: for leg cramps multivitamin Capsule 1 cap PO DAILY 0RF Rx Instructions: pts family states the pt takes when he wants too omega 4-lgv-bqs-fish oil [Fish Oil] 1,000 mg (120 mg-180 mg) capsule 1 cap PO DAILY 0RF calcium carbonate [Calcium 600] 600 mg calcium (1,500 mg) tablet 600 mg PO DAILY PRN (Reason: Acid Reflux) 0RF ibuprofen 200 mg Tablet 400 mg PO PRN 0RF Discharge Orders: Discharge Order (Routine); Ordered 12/22/21 Ordered By: Tee Ryder Other Ambulatory Orders: DME: [employer] (Order) Location: None Selected Ordered By: Tee Ryder Referrals: [facility] Setup [Other] (Call this # to see if you qualify for in home services. They will ask you a series of questions and based on your response assign points. The total # of points will determine if you qualify for services and if so how much you qualify for. ) Outpt IVIG Infusions [Other] (Dr Posadas's office is setting you up with weekly Outpt IVIG infusions. You will come to the hospital's GI Lab, to get them. They will call you with a date & time.) Lavonne Posadas MD [Primary Care Provider] - 01/11/22 12:00 pm Discharge Diet: Regular Discharge Activity: Use walker/crutches as instructed and As per PT/OT instructions Patient Instructions: Metoprolol (By mouth) (Lopressor, Toprol XL), Thiamine (By mouth) ([facility] Vitamin B1, Nature's..., Folic Acid (By mouth) (FA-8, [place], Folacin-800, Methylfolate), Magnesium Oxide (By mouth) (Mag-Ox 400, [facility] [employer] [facility]..., Hypomagnesemia (DC), Opioid Safety Discharge Attestations Time Spent in Discharge Care*: less than 30 min Quality Metrics Clinical Quality Measures [ No reported AMI, CVA or VTE this stay] Coding Level of Care Code Acute Chg FW DC note Diagnoses Hypomagnesemia E83.42 CIDP (chronic inflammatory demyelinating polyneuropathy) G61.81 Muscle weakness of all 4 extremities M62.81 Smoking addiction F17.200 Excessive consumption of ethanol F10.10
[2021-12-22 12:00] VITALS: BP 131/79; PULSE 88; RESP 18; TEMP 36.6; O2SAT 95
== END 2021-12-22 14:05 | disposition home or self-care (01) | DRG 74 ==
LOC: ER 22:46 → MEDSURG 23:37
PROVIDERS: Nurse Practitioner Family; Admitting Provider Internal Medicine; Emergency Provider Emergency Medicine; PCP Specialist; Visit Provider Internal Medicine
DX: G61.81 Chronic inflammatory demyelinating polyneuritis (principal); G40.109 Localization-related (focal) (partial) symptomatic epilepsy and epileptic syndromes with simple partial seizures, not intractable, without status epilepticus; Z87.820 Personal history of traumatic brain injury; F17.210 Nicotine dependence, cigarettes, uncomplicated; F10.10 Alcohol abuse, uncomplicated; E83.42 Hypomagnesemia; Z86.16 Personal history of COVID-19
CPT/HCPCS: 36415; 70450; 80053; 80164; 80306; 81003; 82550; 82607; 82746; 83735; 84100; 84145; 84443; 85025; 85378; 85651; 86140; 87806; 96365; 96372; 96375; 97110; 97116; 97161; 97165; 97530; 99285; J1568; J1650; J2270; J2405; J3411; J3475; J7030; J7510

== ENCOUNTER → 2021-12-28 08:44 | Day surgery (SDC) | payer MEDICAID, SELFPAY ==
[2021-12-28 09:15] VITALS: BP 111/83; PULSE 100; RESP 18; TEMP 36.1; O2SAT 96
== END ==
PROVIDERS: PCP Specialist; Visit Provider Specialist
DX: G61.81 Chronic inflammatory demyelinating polyneuritis (principal)
CPT/HCPCS: 96365; 96366; J1568

== ENCOUNTER 2022-01-11 09:00 | Outpatient (RCR) | payer MEDICAID, SELFPAY ==
[2022-01-03 09:44] VITALS: BP 106/61; PULSE 111; RESP 18; TEMP 36.1; O2SAT 96
[2022-01-11 09:16] VITALS: BP 135/99; PULSE 114; RESP 18; TEMP 36.4; O2SAT 99
== END 2022-01-14 23:59 | disposition home or self-care (01) ==
LOC: GILAB 09:00
PROVIDERS: PCP Specialist; Visit Provider Specialist
DX: G61.81 Chronic inflammatory demyelinating polyneuritis (principal)
CPT/HCPCS: 96365; 96366; J1568

== ENCOUNTER → 2022-01-11 11:06 | Outpatient (BNVA) | payer MEDICAID, SELFPAY | PROVIDERS: PCP Specialist; Visit Provider Specialist | DX: G61.81 Chronic inflammatory demyelinating polyneuritis (principal); G40.109 Localization-related (focal) (partial) symptomatic epilepsy and epileptic syndromes with simple partial seizures, not intractable, without status epilepticus; G40.409 Other generalized epilepsy and epileptic syndromes, not intractable, without status epilepticus; F10.21 Alcohol dependence, in remission | CPT/HCPCS: 99214; 99215 ==

== ENCOUNTER 2022-02-09 08:28 | Outpatient (RCR) | payer MEDICAID, SELFPAY ==
[2022-01-19 09:41] VITALS: BP 113/79; PULSE 100; RESP 18; TEMP 36.1; O2SAT 96
[2022-01-26 08:18] VITALS: BP 120/74; PULSE 91; RESP 18; TEMP 36; O2SAT 98
[2022-02-02 09:16] VITALS: BP 111/76; PULSE 118; RESP 18; TEMP 36; O2SAT 96
[2022-02-09 08:50] VITALS: BP 116/68; PULSE 98; RESP 16; TEMP 36.4; O2SAT 96
== END 2022-02-14 23:59 | disposition home or self-care (01) ==
LOC: GILAB 08:28
PROVIDERS: PCP Specialist; Visit Provider Specialist
DX: G61.81 Chronic inflammatory demyelinating polyneuritis (principal)
CPT/HCPCS: 96365; 96366; J1568

== ENCOUNTER 2022-03-02 08:38 | Outpatient (RCR) | payer MEDICAID, SELFPAY ==
[2022-02-16 08:51] VITALS: BP 109/77; PULSE 100; RESP 18; TEMP 36.4; O2SAT 98
[2022-02-23 08:43] VITALS: BP 127/74; PULSE 88; RESP 18; TEMP 36.4; O2SAT 100
[2022-03-02 08:55] VITALS: BP 117/82; PULSE 51; RESP 18; TEMP 36.6; O2SAT 97
== END 2022-03-16 23:59 | disposition home or self-care (01) ==
LOC: GILAB 08:38
PROVIDERS: PCP Specialist; Visit Provider Specialist
DX: G40.909 Epilepsy, unspecified, not intractable, without status epilepticus (principal); G61.81 Chronic inflammatory demyelinating polyneuritis; F10.21 Alcohol dependence, in remission
CPT/HCPCS: 96365; 96366; 99214; J1568

== ENCOUNTER 2022-04-13 08:35 | Outpatient (RCR) | payer MEDICAID, SELFPAY ==
[2022-03-23 09:12] VITALS: BP 113/63; PULSE 78; RESP 18; TEMP 36.3; O2SAT 99
[2022-04-13 09:00] VITALS: BP 113/66; PULSE 93; RESP 18; TEMP 36.3; O2SAT 98
== END 2022-04-16 23:59 | disposition home or self-care (01) ==
LOC: GILAB 08:35
PROVIDERS: PCP Specialist; Visit Provider Specialist
DX: G61.81 Chronic inflammatory demyelinating polyneuritis (principal)
CPT/HCPCS: 96365; 96366; J1568

== ENCOUNTER → 2022-05-04 09:00 | Day surgery (SDC) | payer MEDICAID, SELFPAY ==
[2022-05-04 09:25] VITALS: BP 112/77; PULSE 86; RESP 18; TEMP 36.2; O2SAT 99
== END ==
PROVIDERS: PCP Specialist; Visit Provider Specialist
DX: G61.81 Chronic inflammatory demyelinating polyneuritis (principal)
CPT/HCPCS: 96365; 96366; J1568

== ENCOUNTER → 2022-05-25 08:49 | Day surgery (SDC) | payer MEDICAID, SELFPAY ==
[2022-05-25 09:11] VITALS: BP 105/61; PULSE 92; RESP 18; TEMP 36.4; O2SAT 99
== END ==
PROVIDERS: PCP Specialist; Visit Provider Specialist
DX: G61.81 Chronic inflammatory demyelinating polyneuritis (principal)
CPT/HCPCS: 96365; 96366; J1568

== ENCOUNTER → 2022-05-31 10:36 | Outpatient (BNVA) | payer MEDICAID, SELFPAY | PROVIDERS: PCP Specialist; Visit Provider Specialist | DX: G40.109 Localization-related (focal) (partial) symptomatic epilepsy and epileptic syndromes with simple partial seizures, not intractable, without status epilepticus (principal); G61.81 Chronic inflammatory demyelinating polyneuritis; G40.409 Other generalized epilepsy and epileptic syndromes, not intractable, without status epilepticus; F10.20 Alcohol dependence, uncomplicated | CPT/HCPCS: 99214 ==

== ENCOUNTER → 2022-06-15 08:52 | Day surgery (SDC) | payer MEDICAID, SELFPAY ==
[2022-06-15 09:30] VITALS: BP 117/68; PULSE 58; RESP 18; TEMP 35.8; O2SAT 100
== END ==
PROVIDERS: PCP Specialist; Visit Provider Specialist
DX: G61.81 Chronic inflammatory demyelinating polyneuritis (principal)
CPT/HCPCS: 96365; 96366; J1568

== ENCOUNTER → 2022-07-06 08:49 | Day surgery (SDC) | payer MEDICAID, SELFPAY ==
[2022-07-06 09:43] VITALS: BP 113/72; PULSE 81; RESP 18; TEMP 36.6; O2SAT 100
== END ==
PROVIDERS: PCP Specialist; Visit Provider Specialist
DX: G61.81 Chronic inflammatory demyelinating polyneuritis (principal)
CPT/HCPCS: 96365; 96366; J1459

== ENCOUNTER → 2022-07-27 09:06 | Day surgery (SDC) | payer MEDICAID, SELFPAY ==
[2022-07-27 09:29] VITALS: BP 101/69; PULSE 86; RESP 18; TEMP 36.2; O2SAT 98
== END ==
PROVIDERS: PCP Specialist; Visit Provider Specialist
DX: G61.81 Chronic inflammatory demyelinating polyneuritis (principal)
CPT/HCPCS: 96365; 96366; J1459

== ENCOUNTER → 2022-08-17 09:14 | Day surgery (SDC) | payer MEDICAID, SELFPAY ==
[2022-08-17 09:32] VITALS: BP 112/71; PULSE 100; RESP 18; TEMP 36.2; O2SAT 100
== END ==
PROVIDERS: PCP Specialist; Visit Provider Specialist
DX: G61.81 Chronic inflammatory demyelinating polyneuritis (principal)
CPT/HCPCS: 96365; 96366; J1459

== ENCOUNTER → 2022-09-07 08:07 | Day surgery (SDC) | payer MEDICAID, SELFPAY ==
[2022-09-07 09:31] VITALS: BP 104/66; PULSE 86; RESP 18; TEMP 36.3; O2SAT 96
== END ==
PROVIDERS: PCP Specialist; Visit Provider Specialist
DX: G61.81 Chronic inflammatory demyelinating polyneuritis (principal); G40.019 Localization-related (focal) (partial) idiopathic epilepsy and epileptic syndromes with seizures of localized onset, intractable, without status epilepticus
CPT/HCPCS: 96365; 96366; 99214; J1459

== ENCOUNTER → 2022-10-05 09:04 | Day surgery (SDC) | payer MEDICAID, SELFPAY ==
[2022-10-05 09:34] VITALS: BP 120/68; PULSE 80; RESP 18; TEMP 35.9; O2SAT 100
== END ==
PROVIDERS: Visit Provider Specialist
DX: G61.81 Chronic inflammatory demyelinating polyneuritis (principal)
CPT/HCPCS: 96365; 96366; J1459

== ENCOUNTER → 2022-11-02 09:05 | Day surgery (SDC) | payer MEDICAID, SELFPAY ==
[2022-11-02 09:34] VITALS: BP 112/67; PULSE 80; RESP 18; TEMP 36.4; O2SAT 99
== END ==
PROVIDERS: PCP Specialist; Visit Provider Specialist
DX: G61.81 Chronic inflammatory demyelinating polyneuritis (principal)
CPT/HCPCS: 96365; 96366; J1459

== ENCOUNTER → 2022-11-30 09:00 | Day surgery (SDC) | payer MEDICAID, SELFPAY ==
[2022-11-30 09:21] VITALS: BP 102/61; PULSE 84; RESP 18; TEMP 36.2; O2SAT 97
== END ==
PROVIDERS: PCP Specialist; Visit Provider Specialist
DX: G61.81 Chronic inflammatory demyelinating polyneuritis (principal)
CPT/HCPCS: 96365; 96366; J1459

== ENCOUNTER → 2022-12-28 08:22 | Day surgery (SDC) | payer MEDICAID, SELFPAY ==
[2022-12-28 08:44] VITALS: BP 100/61; PULSE 78; RESP 18; TEMP 36.5; O2SAT 98
== END ==
PROVIDERS: PCP Specialist; Visit Provider Specialist
DX: G61.81 Chronic inflammatory demyelinating polyneuritis (principal)
CPT/HCPCS: 96365; 96366; J1459

== ENCOUNTER → 2023-01-10 09:41 | Outpatient (BNVA) | payer MEDICAID, SELFPAY | PROVIDERS: PCP Family Medicine; Visit Provider Specialist | DX: G40.802 Other epilepsy, not intractable, without status epilepticus (principal); G61.81 Chronic inflammatory demyelinating polyneuritis | CPT/HCPCS: 99214 ==

== ENCOUNTER → 2023-01-25 09:09 | Day surgery (SDC) | payer MEDICAID, SELFPAY ==
[2023-01-25 09:43] VITALS: BP 121/72; PULSE 93; RESP 18; TEMP 36.7; O2SAT 99
== END ==
PROVIDERS: PCP Family Medicine; Visit Provider Specialist
DX: G61.81 Chronic inflammatory demyelinating polyneuritis (principal); Z79.899 Other long term (current) drug therapy
CPT/HCPCS: 96365; 96366; J1459

== ENCOUNTER → 2023-02-22 08:55 | Day surgery (SDC) | payer MEDICAID, SELFPAY ==
[2023-02-22 09:14] VITALS: BP 121/71; PULSE 95; RESP 18; TEMP 36.2; O2SAT 98
== END ==
PROVIDERS: PCP Family Medicine; Visit Provider Specialist
DX: G61.81 Chronic inflammatory demyelinating polyneuritis (principal); Z79.899 Other long term (current) drug therapy
CPT/HCPCS: 96365; 96366; J1459

== ENCOUNTER → 2023-03-22 08:56 | Day surgery (SDC) | payer MEDICAID, SELFPAY ==
[2023-03-22 09:13] VITALS: BP 118/76; PULSE 83; RESP 18; TEMP 36.4; O2SAT 100
== END ==
PROVIDERS: PCP Family Medicine; Visit Provider Specialist
DX: G61.81 Chronic inflammatory demyelinating polyneuritis (principal); Z79.899 Other long term (current) drug therapy
CPT/HCPCS: 96365; 96366; J1459

== ENCOUNTER → 2023-04-19 09:01 | Day surgery (SDC) | payer MEDICAID, SELFPAY ==
[2023-04-19 09:42] VITALS: BP 109/71; PULSE 90; RESP 18; TEMP 36.4; O2SAT 97
== END ==
PROVIDERS: PCP Family Medicine; Visit Provider Specialist
DX: G61.81 Chronic inflammatory demyelinating polyneuritis (principal); Z79.899 Other long term (current) drug therapy
CPT/HCPCS: 96365; 96366; J1459

== ENCOUNTER → 2023-04-25 11:58 | Outpatient (BNVA) | payer MEDICAID, SELFPAY | PROVIDERS: PCP Family Medicine; Visit Provider Specialist | DX: G40.802 Other epilepsy, not intractable, without status epilepticus (principal); Z86.69 Personal history of other diseases of the nervous system and sense organs; Z09 Encounter for follow-up examination after completed treatment for conditions other than malignant neoplasm | CPT/HCPCS: 99214 ==

== ENCOUNTER → 2023-07-25 12:47 | Outpatient (BNVA) | payer MEDICAID, SELFPAY | PROVIDERS: PCP Family Medicine; Visit Provider Specialist | DX: G40.802 Other epilepsy, not intractable, without status epilepticus (principal); G61.81 Chronic inflammatory demyelinating polyneuritis; F10.90 Alcohol use, unspecified, uncomplicated | CPT/HCPCS: 99214 ==

== ENCOUNTER → 2024-01-23 13:17 | Outpatient (BNVA) | payer MEDICAID, SELFPAY | PROVIDERS: PCP Family Medicine; Visit Provider Specialist | DX: G40.802 Other epilepsy, not intractable, without status epilepticus (principal); G40.019 Localization-related (focal) (partial) idiopathic epilepsy and epileptic syndromes with seizures of localized onset, intractable, without status epilepticus; G61.81 Chronic inflammatory demyelinating polyneuritis | CPT/HCPCS: 36415; 80053; 80164; 80307; 85025; 99214 ==

== ENCOUNTER → 2024-07-30 13:38 | Outpatient (BNVA) | payer MEDICAID, SELFPAY | PROVIDERS: PCP Family Medicine; Visit Provider Specialist | DX: G40.109 Localization-related (focal) (partial) symptomatic epilepsy and epileptic syndromes with simple partial seizures, not intractable, without status epilepticus (principal); G40.802 Other epilepsy, not intractable, without status epilepticus; G61.81 Chronic inflammatory demyelinating polyneuritis; G47.30 Sleep apnea, unspecified | CPT/HCPCS: 99214 ==

== ENCOUNTER → 2025-01-29 12:39 | Outpatient (BNVA) | payer MEDICAID, SELFPAY | PROVIDERS: PCP Family Medicine; Visit Provider Specialist | DX: G40.802 Other epilepsy, not intractable, without status epilepticus (principal); G61.81 Chronic inflammatory demyelinating polyneuritis; T31.10 Burns involving 10-19% of body surface with 0% to 9% third degree burns; X58.XXXA Exposure to other specified factors, initial encounter | CPT/HCPCS: 99214 ==